=== PATIENT | female | born 1940 | race Caucasian/White ===

== ENCOUNTER → 2017-03-19 | Outpatient (CLI) | payer MEDICARE, BC ==
[~2017-03-19] MED LIST: ASPIR 8181 MG PO; CELEXA20 MG PO; CIPRO500 MG PO; DIPYRIDAMOLE 5050 M1 PO; FLAGYL500 MG PO; FLEXERIL PO; HYDROCODONE-AP1 EAC6 PO; MIRALAX17 GM PO; RANEXA500 MG PO; TRAZODONE HCL50 MG PO; ZEGERID 40 MG1 EACH; ZOCOR20 MG PO
== END ==
LOC: M.RAD 11:44
DX: R06.09 Other forms of dyspnea (principal); K57.92 Diverticulitis of intestine, part unspecified, without perforation or abscess without bleeding; I25.10 Atherosclerotic heart disease of native coronary artery without angina pectoris; E78.5 Hyperlipidemia, unspecified; Z90.710 Acquired absence of both cervix and uterus

== ENCOUNTER → 2017-09-11 | Outpatient (CLI) | payer MEDICARE, BC | LOC: M.MRI 14:06 | DX: M43.26 Fusion of spine, lumbar region (principal); M51.26 Other intervertebral disc displacement, lumbar region; M48.061 Spinal stenosis, lumbar region without neurogenic claudication; R20.0 Anesthesia of skin ==

== ENCOUNTER → 2019-11-26 | Outpatient (CLI) | payer MEDICARE, BC | LOC: M.MRI 11:11 | DX: M47.26 Other spondylosis with radiculopathy, lumbar region (principal); M48.061 Spinal stenosis, lumbar region without neurogenic claudication ==